=== PATIENT | female | born 1985 | race Caucasian/White ===

== ENCOUNTER 2017-01-23 05:49 | Inpatient (IN) ==
[2017-01-23] MEDS ORDERED: Naloxone 0.4 MG/ML INJ IVP PRN (05:52)
[2017-01-23] MEDS ORDERED: Famotidine 20 MG/2 ML VIAL IVP PRN (05:52)
[2017-01-23] MEDS ORDERED: Metoclopramide 10 MG/2 ML VIAL IVP PRN ×2 (05:52→13:10)
[2017-01-23] MEDS ORDERED: Ringers Solution, Lactated 1,000 ML IVC SCH (06:00)
[2017-01-23 06:18] LABS: Basophils % 0.2 %; Eosinophils # 0.1 K/mcL (0.0-0.6); Eosinophils % 0.8 %; Hematocrit 35.8 % (35.3-44.9); Hemoglobin 12.2 g/dL (11.5-15.4); Lymphocytes % 34.4 %; Mean Corpuscular HGB Conc 34.1 g/dL (31.6-35.5); Mean Corpuscular Hemoglobin 31.5 pg (28.0-33.3); Mean Corpuscular Volume 92.5 fL (83.0-100.0); Mean Platelet Volume 11.2 fL (9.4-12.4); Monocytes # 0.7 K/mcL (0.0-1.3); Monocytes % 8.2 %; Neutrophils # 4.8 K/mcL (1.6-8.9); Platelet Count 179 K/mcL (140-400); Red Blood Count 3.87 M/mcL (3.82-4.97); Red Cell Distribution Width 13.3 % (11.5-14.5); Segmented Neutrophils % 55.4 %
--- NOTE | 2017-01-23 06:31 | OB/GYN History & Physical ---
Date of Encounter: 01/23/17 Time of Encounter: 06:24 Assessment and Plan (1) 39 weeks gestation of Current visit: Yes Status: Acute 39 weeks 1 day Scheduled repeat section Preop orders initiated IV fluids Spinal anesthesia (2) Previous section Current visit: Yes Status: Acute (3) Encounter for tubal ligation Current visit: Yes Status: Acute History of Present Illness Chief complaint: Scheduled repeat HPI: Ms. Tapia is a 31 year old female 39 weeks 1 day presents for scheduled repeat section with tubal ligation. History of a spontaneous vaginal delivery and emergency section, no complications. Estimated due date 01/29/2017. She is a patient of OB Dr. Kirk. She is O positive blood type. GBS negative, Hep B nonreactive, Rubella positive, other serologies reviewed and are negative. Denies any complaints at this time. Former smoker prior to . Last meal or oral intake at 2300 last night. She only takes Tums and vitamins. No known drug allergies. Denies any cardiac and pulmonary disorders. Past Med Surg Social Fam HX - Past Medical History Medical history: no medical history Psychiatric history: no psych history - Past Surgical History Surgical History: - Social History Smoking Status: Former smoker Smokeless Tobacco Status: No Alcohol use: none Drug use: none - Family History Mother Age: 56 Living Status: Still Living Hx Family Cardiac Disorders: No Hx Family Respiratory Disorders: No Hx Family Cancer: No Hx Family GI Disorders: No Hx Family Endocrine Disorder: No Hx Family Neuromuscular Disorders: No Hx Family Neurologic Disorders: No Hx Family HEENT Disorders: No Hx Family Autoimmune Disorders: No Obstetrical History - Pregnancies : 2 Para: 1 Term: 1 : 0 Ab's: 0 Livin Medications and Allergies Tablet 1 tab PO DAILY 05/17/15 [History] Allergies No Known Allergies Allergy (Verified 01/23/17 06:02) Review of System OB All systems PM: reviewed and no additional remarkable complaints except as stated Exam - Vital Signs Vital signs: Initial Vital Signs Temp Pulse Resp BP 98.5 F 61 16 123/70 01/23/17 06:16 01/23/17 06:16 01/23/17 06:16 01/23/17 06:16 - Constitutional Constitutional: well developed, well nourished, no acute distress, average body habitus - HEENT HEENT: Normocephaly, Mucus Membranes Moist - Neck Neck exam: full ROM, normal inspection - Lungs Respiratory exam: CTAB - Cardiovascular Cardiovascular exam: RRR, +S1, +S2 - Breasts Breast: bilateral: normal - Abdomen Abdomen: Present: bowel sounds normal, gravid, non tender - Extremities Extremities exam: normal capillary refill, normal inspection, pedal edema (+1 nonpitting, symmetrical bilaterally), warm, radial pulses palpable and symetrical - Vagina Vagina: Present: normal moisture - Uterus Uterus exam: Present: normal size Results Result Diagrams: 01/23/17 06:10 All other labs normal. - Attending Attestation I examined this patient and my medical decision-making was reviewed with the DIAL MOUNTER/PA/Advanced Practice Nurse/Resident Physician. I agree with the documented findings, disposition and treatment plan as described except to the extent set forth below.
--- NOTE | 2017-01-23 07:19 | Anesthesia Evaluation PreOp ---
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 Other Medical History: Denies Any Significant HX Anesthesia History: No Prior Anesthetic Complications, Past Anesthesia (csection , repeat) : Yes (, 39 plus 1) Alcohol Use: none Drug use: none Medications and Allergies Tablet 1 tab PO DAILY 05/17/15 [History] Allergies No Known Allergies Allergy (Verified 01/23/17 06:02) - Meds/Allergy Pre-op Review Medications Reviewed: Yes Allergies Reviewed: Yes Beta Blockers on Current Med List: No Anesthesia Results - Labs 01/23/17 06:10 Anesthesia Exam O2 Sat Height 1.47 m Weight 60 kg Vital Signs Temp Pulse Resp BP 98.5 F 61 16 123/70 01/23/17 06:16 01/23/17 06:16 01/23/17 06:16 01/23/17 06:16 Height: 58 Weight: 60 - HEENT Pupil (Motor): Pupils equal
[2017-01-23] MEDS ORDERED: MetroNIDAZOLE 500 MG/100 ML 500 MG/100 ML BAG IVPB ONE (07:24)
[2017-01-23] MEDS ORDERED: ceFAZolin 2,000 MG in D5% in Water (Mini-Bag+) 100 ML IVPB ONE (07:27)
[2017-01-23] MEDS ORDERED: *HR* Morphine Sulfate/PF 5 MG/10 ML AMPUL ONE (07:41)
[2017-01-23] MEDS ORDERED: *HR* Oxytocin 10 UNIT/ML VIAL IM ONE (07:43)
[2017-01-23] MEDS ORDERED: EPHEDrine 50 MG/ML VIAL ONE (07:43)
[2017-01-23] MEDS ORDERED: *HR* Phenylephrine 10 MG/ML VIAL ONE (07:44)
[2017-01-23] MEDS ORDERED: Ondansetron 4 MG/2 ML VIAL ONE (08:21)
[2017-01-23] MEDS ORDERED: *HR* HYDROmorphone (PF) 1 MG/ML SYRINGE IVP PRN (08:41)
[2017-01-23] MEDS ORDERED: *HR* Promethazine 25 MG/ML VIAL IVP PRN (08:41)
[2017-01-23] MEDS ORDERED: *HR* Labetalol 100 MG/20 ML MDV IVP PRN (08:41)
[2017-01-23] MEDS ORDERED: Ringers Solution, Lactated 1,000 ML ONE (08:44)
--- NOTE | 2017-01-23 09:39 | OB/GYN Procedure Note ---
Section - Date of procedure: 01/23/17 Preop diagnosis: desires repeat , desires sterilization Post-op diagnosis: same Procedure: section, repeat low transverse, bilateral tubal ligation Surgeon: Anne Kirk Estimated blood loss (cc): 400 Anesthesiologist: Johnathan Quezada [employer] Developer: Clarence Thompson Anesthesia Type: Spinal section complications: none Disposition: L&D Recovery Room Specimens: Placenta, Cord segment, Cord blood, Right tube segment, Left tube segment - Infant (s) A Delivery Date: 01/23/17 Infant Delivery Time: 08:45 Presentation: vertex Position: LOT Route of delivery: other (rpt c/s) Gender: Female Viability: Viable Pounds: 6 Ounces: 15 at 1 minute: 9 at 5 minutes: 9 Shoulder Dystocia: not encountered Specimens collected: cord blood Placenta: spontaneous, uterine exploration Cord: 3 umbilical vessels - Narrative Narrative: The patient was taken to the operating room and given spinal anesthesia adequate for abdominal and pelvic surgery. She was prepped and draped in the usual sterile fashion. Timeout was completed. A Pfannenstiel skin incision was made above and below the previous scar, cicatrix excised and discarded. The subcutaneous tissue was then sharply dissected down to the fascia. The fascia was incised in the midline and extended bilaterally. 2 straight Emmett clamps were placed on the inferior fascial edge and the fascia was bluntly and sharply dissected away from the rectus muscles. This was repeated superiorly. The rectus muscles were bluntly bissected. Peritoneum was sharply entered and then extended superiorly and inferiorly confirming there were no anterior bowel adhesions. Bladder blade was placed to protect the bladder. Vesicouterine peritoneum was incised and reflected inferiorly and the bladder blade was replaced to protect the bladder. A low transverse incision was then made through the lower uterine segment down to the amnion. This was extended with bandage scissors and the fashion bilaterally.. The amnion was bluntly entered and clear fluid noted. This was followed by the vertex delivery of a viable and vigorous female infant weighing 6#15 oz with Apgars of 9 at 1 minute and 9 at 5 minutes. Infant was placed on the maternal abdomen. The cord was clamped and cut after a delay. was handed to the nursery care team. Cord blood was obtained. The placenta was delivered spontaneous and intact. The uterine cavity was digitally palpated and wiped clean with a moist lap sponge. There were no placental remnants identified. A ring forcep is used to dilate the cervix and then discarded off the field. Clamps were placed on the uterine angles and the uterine incision was closed using 0 Vicryl suture in a running, locking fashion. A second imbricating layer completed the uterine closure with 0 Vicryl suture. Good hemostasis was achieved. Attention was then placed on the fallopian tubes. The tubes and ovaries appeared grossly normal bilaterally with no tubo-ovarian adhesions noted bilaterally. The left fallopian tube was grasped with a An clamp and O-plain suture was used to doubly ligate a loop of tube. The loop of tube was then excised and sent to pathology. Good hemostasis was noted in the tubal lumens. This was repeated for the patient's right side. Again good hemostasis noted in the tubal lumens. The uterus was then examined and noted to be hemostatic. The pelvis was then irrigated with a copious amount of sterile water. Again good hemostasis was identified. The peritoneal edges and rectus muscles were then examined and hemostasis achieved. The fascia was then closed using 0 PDS loop in a running nonlocking fashion. Subcutaneous tissue was irrigated with sterile water, good hemostasis was achieved. The subcutaneous layer was reapproximated with 3-0 Vicryl in a running nonlocking fashion. The skin was then closed using and 4-0 Monocryl in a running subcuticular fashion. The incision was then reinforced with benzoin and Steri-Strips. Good hemostasis was noted. Estimated blood loss was 400cc. The Win was noted to be draining clear yellow urine at the end of the procedure. All sponge and instrument counts are correct at the end of the procedure. The patient was taken to the recovery room in stable condition.
[2017-01-23] MEDS ORDERED: Oxytocin 20 units/ LR 1000 mL 20 UNIT/1,000 ML BAG IVC ONE (11:26)
[2017-01-23] MEDS ORDERED: Rho Immune Globulin 1,500 UNIT SYRINGE IM ONE (13:10)
[2017-01-23] MEDS ORDERED: *HR* OxyCODONE/APAP 5/325 TABLET PO PRN (13:10)
[2017-01-23] MEDS ORDERED: Ondansetron 4 MG/2 ML VIAL IVP PRN (13:10)
[2017-01-23] MEDS ORDERED: Oxytocin 20 units/ LR 1000 mL 20 UNIT/1,000 ML BAG IVC SCH (13:10)
[2017-01-23] MEDS ORDERED: Simethicone 80 MG TAB.CHEW PO PRN (13:10)
[2017-01-23] MEDS ORDERED: Sennosides 8.6 MG TABLET PO PRN (13:10)
[2017-01-23] MEDS: Ibuprofen 600 MG TABLET PO PRN ×2 (15:02→21:43)
[2017-01-23] MEDS ORDERED: *HR* Morphine 2 MG/ML SYRINGE IVP PRN (18:34)
--- NOTE | 2017-01-23 18:37 | Anesthesia Evaluation Post Op ---
Date of Encounter: 01/23/17 Time of Encounter: 18:36 - Vital Signs Vital Signs: Vital Signs/O2 Sat, Most Current Temp Pulse Resp BP Pulse Ox 97.5 F L 87 14 123/74 98 01/23/17 16:14 01/23/17 16:14 01/23/17 16:14 01/23/17 16:14 01/23/17 15:06 - Lungs Lungs: Clear Ascult./Percussion - Airway Airway: Non-obstructed - Cardiovascular Regular Rate - Mental Status Mental Status: Alert & Oriented, Answers Appropriately - Pain Pain Scale: 3 - Nausea Vomiting Nausea Vomiting: Not Present - Hydration Hydration: Tolerates oral liquids, Win catheter - Discharge PostOp Status: Transfer Patient to floor
[2017-01-24 02:59] LABS: Basophils % 0.2 %; Eosinophils % 0.3 %; Hematocrit 28.7 % (35.3-44.9); Immature Granulocytes % 0.5 % (0-4); Immature Platelets 6.4 % (1.1-6.1); Lymphocytes # 1.9 K/mcL (0.6-4.6); Lymphocytes % 20.1 %; Mean Corpuscular HGB Conc 33.8 g/dL (31.6-35.5); Mean Corpuscular Hemoglobin 31.8 pg (28.0-33.3); Mean Corpuscular Volume 94.1 fL (83.0-100.0); Mean Platelet Volume 11.4 fL (9.4-12.4); Monocytes # 0.6 K/mcL (0.0-1.3); Monocytes % 6.4 %; Neutrophils # 6.9 K/mcL (1.6-8.9); Platelet Count 159 K/mcL (140-400); Red Blood Count 3.05 M/mcL (3.82-4.97); Red Cell Distribution Width 13.4 % (11.5-14.5); Segmented Neutrophils % 72.5 %
[2017-01-24 03:14] LABS: Hemoglobin 9.7 g/dL (11.5-15.4)
[2017-01-24] MEDS: Ibuprofen 600 MG TABLET PO PRN ×4 (06:36→20:58)
--- NOTE | 2017-01-24 08:10 | OB/GYN Progress Note ---
Date of Encounter: 01/24/17 Time of Encounter: 08:09 - Assessment and Plan (1) Status post repeat low transverse section Current Visit: Yes Status: Acute Continued routine postop/ care Possible discharge home tomorrow (2) Breast feeding status of mother Current Visit: Yes Status: Acute Continue support as needed (3) anemia Current Visit: Yes Status: Acute No signs or symptoms of anemia Continue once daily iron Will continue to monitor (4) Status post tubal ligation at time of delivery, current hospitalization Current Visit: Yes Status: Acute Subjective - Subjective Principal diagnosis: Repeat section Interval history: Patient seen and examined. Patient is sitting up and currently breast-feeding . Denies any issues with breast-feeding. Denies any nausea or vomiting. Passing flatus but denies any bowel movement. Win recently removed, good urine output 200 cc. Patient tolerating regular diet. Reports some mild cramping but good pain control. No other complaints at this time. Patient reports: appetite normal, pain well controlled : doing well, nursing well Objective - Vital Signs Latest vital signs: Vital Signs Temp Pulse Resp BP Pulse Ox 01/24/17 07:40 98.4 F 80 16 106/62 01/24/17 04:07 98.7 F 70 16 108/70 97 01/24/17 00:45 98.8 F 67 14 102/62 96 01/23/17 22:00 98.3 F 67 20 114/70 96 01/23/17 16:14 97.5 F L 87 14 123/74 01/23/17 16:12 14 01/23/17 15:06 97.6 F 67 16 126/72 98 01/23/17 14:00 97.5 F L 90 16 114/72 98 01/23/17 13:00 97.4 F L 67 16 129/70 98 01/23/17 12:30 97.6 F 68 16 138/76 99 01/23/17 12:00 97.7 F 64 16 119/73 98 Intake and Output 01/23/17 01/24/17 01/24/17 23:59 07:59 15:59 Intake Total 1465 / 1465 Output Total 3400 / 3400 Balance -1935 / -193 Intake: IV Fluids 865 / 865 Pitocin 20 unit In 1,000 865 / 865 ml @ 125 mls/hr IVC .Q8H [facility] Rx#:[id number] Oral 600 / 600 Output: Urine 200 / 200 Catheter 3200 / 3200 - Exam Lungs: bilateral: normal Chest: Normal S1, Normal S2 Extremities: Present: normal, edema (mild). Absent: tenderness Abdomen: Present: normal appearance, soft, other (active bowel sounds x4) Incision: Present: normal, dry, dressed Uterus: Present: normal, firm Fundal Height: 2 (above umbilicus) - Labs Labs: Laboratory Results - last 24 hr 01/24/17 02:43 WBC 9.6 RBC 3.05 L Hgb 9.7 L D Hct 28.7 L MCV 94.1 MCH 31.8 MCHC 33.8 RDW 13.4 Plt Count 159 MPV 11.4 Immature Gran % 0.5 Seg Neutrophils % 72.5 Lymphocytes % 20.1 Monocytes % 6.4 Eosinophils % 0.3 Basophils % 0.2 Neutrophils # 6.9 Lymphocytes # 1.9 Monocytes # 0.6 Eosinophils # 0.0 Basophils # 0.0 Immature Plt Fraction 6.4 H
[2017-01-24] MEDS: Prenatal Vit/FA 1 EACH TABLET PO SCH (09:07)
[2017-01-25] MEDS ORDERED: Acetaminophen 325 MG TABLET PO PRN (01:25)
[2017-01-25] MEDS: Ibuprofen 600 MG TABLET PO PRN ×2 (03:07→08:44)
[2017-01-25] MEDS ORDERED: Acetaminophen 325 MG TABLET PO SCH (04:00)
[2017-01-25 08:30] VITALS: BP 111/67
[2017-01-25] MEDS: Prenatal Vit/FA 1 EACH TABLET PO SCH (08:44)
--- NOTE | 2017-01-25 08:52 | Discharge Summary ---
Date of Encounter: 01/25/17 Time of Encounter: 08:58 - Discharge Diagnosis (1) Status post repeat low transverse section Priority: Primary Status: Acute Comments: patient is doing very well, ambulating without issues, tolerating PO intake, urinating, pain is under control, ok for discharge - Discharge Medications Home Medications: Tablet 1 tab PO DAILY 05/17/15 [History] Allergies/Adverse Reactions: Allergies No Known Allergies Allergy (Verified 01/23/17 06:02) Data Procedures and tests throughout hospitalization: Laboratory Tests 01/23/17 01/24/17 06:10 02:43 WBC 8.7 9.6 RBC 3.87 3.05 L Hgb 12.2 9.7 L D Hct 35.8 28.7 L MCV 92.5 94.1 MCH 31.5 31.8 MCHC 34.1 33.8 RDW 13.3 13.4 Plt Count 179 159 MPV 11.2 11.4 Immature Gran % 1.0 0.5 Seg Neutrophils % 55.4 72.5 Lymphocytes % 34.4 20.1 Monocytes % 8.2 6.4 Eosinophils % 0.8 0.3 Basophils % 0.2 0.2 Neutrophils # 4.8 6.9 Lymphocytes # 3.0 1.9 Monocytes # 0.7 0.6 Eosinophils # 0.1 0.0 Basophils # 0.0 0.0 Immature Plt Fraction 6.4 H Date of admission: 01/23/17 05:49 Primary care physician: PCP NO - Patient Status Disposition: Home, Self-Care Condition: Good Functional capacity at discharge: independent ambulation Overall status at discharge: patient is progressing back to baseline - Discharge Instructions Follow Up With: NO,PCP [Primary Care Provider] - 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 Attestation: Total time spent providing and/or coordinating discharge services: Exam - Constitutional Vitals: Temp Pulse Resp BP Pulse Ox 98.2 F 79 16 111/67 98 01/25/17 07:30 01/25/17 07:30 01/25/17 07:30 01/25/17 07:30 01/24/17 20:55 General appearance IM: A&O X 3 - Respiratory Respiratory exam: Present: CTAB - Cardiovascular Cardiovascular exam IM: Present: RRR - GI/Abdominal GI/Abdominal exam IM: firm, normal bowel sounds Incision: normal, dry, intact - Rectal Rectal exam: deferred - External exam: normal external exam Uterine Tone: Firm - Extremities Exam Extremities exam IM: Present: normal inspection, warm - Neurological Exam Neurological exam: oriented X3 - VTE Documentation of Mechanical Device: Intermittent pneumatic compression device
== END 2017-01-25 12:11 | disposition home or self-care (01) | DRG 766 ==
LOC: 1NENULAB 05:49 → 1NENUOBS 12:06
PROVIDERS: ADMIT Obstetrics & Gynecology; ATTEND Obstetrics & Gynecology